=== PATIENT | male | born 1965 | race Caucasian/White ===

== ENCOUNTER 2023-06-27 18:35 | Emergency (ER) | payer OTHER ==
[~2023-06-27] VITALS: Ht 162.6 cm; Wt 93.6 kg
[2023-06-27 18:47] VITALS: BP 134/68; TEMP 97.8; O2SAT 98
[2023-06-27 19:10] LABS: BASO # 0.1 10^3/uL (0.0-0.2); BASO % 0.5 % (0.0-1.0); EOS # 0.1 10^3/uL (0.0-0.5); EOS % 0.3 % (0.0-3.0); HEMATOCRIT 44.9 % (42.0-52.0); LYMPH # 1.5 10^3/uL (1.5-5.0); LYMPH % 9.6 % (24.0-44.0); MEAN CORPUSCULAR HEMOGLOBIN 26.1 pg (27.0-33.0); MEAN CORPUSCULAR HGB CONC 31.2 g/dl (32.0-36.5); MEAN CORPUSCULAR VOLUME 83.6 fl (80.0-96.0); MONO % 6.3 % (2.0-8.0); NEUTROPHILS # 13.3 10^3/uL (1.5-8.5); NEUTROPHILS % 82.5 % (36.0-66.0); PLATELET COUNT, AUTOMATED 457 10^3/uL (150-450); RED BLOOD COUNT 5.37 10^6/uL (4.30-6.10); WHITE BLOOD COUNT 16.1 10^3/uL (4.0-10.0)
[2023-06-27] MEDS ORDERED: KETOROLAC 30 MG/ML 1ML VIAL IV ONE (19:45)
[2023-06-27 19:46] LABS: BLOOD UREA NITROGEN 31 MG/DL (9-23); CALCIUM LEVEL 9.6 MG/DL (8.5-10.1); CARBON DIOXIDE LEVEL 20 MMOL/L (20-31); CHLORIDE LEVEL 101 MMOL/L (98-107); CREATININE FOR GFR 1.14 MG/DL (0.70-1.30); GLOMERULAR FILTRATION RATE > 60.0 (>56); GLUCOSE, FASTING 224 MG/DL (60-100); POTASSIUM SERUM 4.5 MMOL/L (3.5-5.1); SODIUM LEVEL 136 MMOL/L (136-145)
[2023-06-27 19:47] LABS: CPK CREATINE PHOSPHOKINASE 37 U/L (46-171)
[2023-06-27] MEDS ORDERED: DOXYCYCLINE HYCLATE 200 MG in D5W MINI-BAG PLUS 100 ML IV ONE (21:00)
[2023-06-27 21:04] LABS: CK-MB VALUE MASS 1.3 NG/ML (<3.6)
[2023-06-27 21:05] LABS: MB/CK RELATIVE INDEX 3.51 (< OR =4)
[2023-06-27] MEDS ORDERED: D5W IV ONE (21:05)
[2023-06-27] MEDS ORDERED: DOXYCYCLINE HYCLATE IV ONE (21:05)
[2023-06-27] MEDS ORDERED: IBUP-1022 PO (21:15)
[2023-06-27] MEDS ORDERED: DOXY-443 PO (21:15)
== END 2023-06-27 22:30 | disposition home or self-care (01) ==
LOC: EDBD 18:35 → M ED 18:35
DX: J18.9 Pneumonia, unspecified organism (principal); R07.9 Chest pain, unspecified; I25.2 Old myocardial infarction; I10 Essential (primary) hypertension; Z79.1 Long term (current) use of non-steroidal anti-inflammatories (NSAID); Z79.899 Other long term (current) drug therapy
CPT/HCPCS: 71045; 73030; 80048; 82550; 82553; 85025; 93005; 93041; 94760; 96374; 96375; 99284; J1885

== ENCOUNTER 2025-02-20 09:35 | Emergency (ER) | payer OTHER ==
[~2025-02-20] VITALS: Ht 162.6 cm; Wt 108.0 kg
[~2025-02-20 09:35] MED LIST: DOXY-441 PO; IBUP-1022 PO
[2025-02-20 10:15] LABS: BASO # 0.1 10^3/uL (0.0-0.2); BASO % 0.9 % (0.0-1.0); EOS # 0.3 10^3/uL (0.0-0.5); EOS % 2.7 % (0.0-3.0); HEMATOCRIT 45.6 % (42.0-52.0); HEMOGLOBIN 14.7 g/dl (13.5-17.5); LYMPH # 2.5 10^3/uL (1.5-5.0); LYMPH % 26.7 % (24.0-44.0); MEAN CORPUSCULAR HEMOGLOBIN 27.1 pg (27.0-33.0); MEAN CORPUSCULAR HGB CONC 32.2 g/dl (32.0-36.5); MONO # 0.7 10^3/uL (0.0-0.8); MONO % 7.6 % (2.0-8.0); NEUTROPHILS # 5.6 10^3/uL (1.5-8.5); NEUTROPHILS % 61.6 % (36.0-66.0); PLATELET COUNT, AUTOMATED 402 10^3/uL (150-450); RED BLOOD COUNT 5.43 10^6/uL (4.30-6.10); WHITE BLOOD COUNT 9.2 10^3/uL (4.0-10.0)
[2025-02-20 10:39] LABS: BLOOD UREA NITROGEN 19 MG/DL (9-23); CALCIUM LEVEL 9.1 MG/DL (8.5-10.1); CARBON DIOXIDE LEVEL 24 MMOL/L (20-31); CHLORIDE LEVEL 105 MMOL/L (98-107); CREATININE FOR GFR 0.65 MG/DL (0.70-1.30); GLOMERULAR FILTRATION RATE > 60.0 (>56); GLUCOSE, FASTING 265 MG/DL (60-100); POTASSIUM SERUM 4.5 MMOL/L (3.5-5.1); SODIUM LEVEL 135 MMOL/L (136-145)
[2025-02-20 10:40] LABS: CK-MB VALUE MASS < 1.0 NG/ML (<3.6)
[2025-02-20 10:41] LABS: CPK CREATINE PHOSPHOKINASE 17 U/L (46-171); MB/CK RELATIVE INDEX 5.88 (< OR =4)
[2025-02-20] MEDS ORDERED: ISOVUE-370 76% 100ML VIAL As Ordered ONE (11:05)
[2025-02-20 11:24] LABS: ALBUMIN 2.8 G/DL (3.2-5.2); ALKALINE PHOSPHATASE 91 U/L (40-129); ALT/SGPT 10 U/L (7.0-40); AST/SGOT 8 U/L (<34); BILIRUBIN,DIRECT 0.2 MG/DL (<0.4); BILIRUBIN,TOTAL 0.4 MG/DL (0.3-1.2); TOTAL PROTEIN 6.7 G/DL (5.7-8.2)
[2025-02-20 12:08] LABS: CK-MB VALUE MASS < 1.0 NG/ML (<3.6); CPK CREATINE PHOSPHOKINASE 47 U/L (46-171); MB/CK RELATIVE INDEX 2.12 (< OR =4)
[2025-02-20] MEDS: KETOROLAC 30 MG/ML 1ML VIAL IV ONE (13:37)
[2025-02-20] MEDS: GABAPENTIN 100 MG CAP PO ONE (13:37)
[2025-02-20 14:15] VITALS: BP 155/69; TEMP 96.9; O2SAT 95
[2025-02-20] MEDS ORDERED: IBUP-1114 PO (14:15)
[2025-02-20] MEDS ORDERED: NEUR100C PO (14:15)
== END 2025-02-20 14:39 | disposition home or self-care (01) ==
LOC: EDBD 09:35 → M ED 09:35
DX: R07.89 Other chest pain (principal); R00.0 Tachycardia, unspecified; I44.4 Left anterior fascicular block; I45.10 Unspecified right bundle-branch block; I25.2 Old myocardial infarction; I10 Essential (primary) hypertension; E11.9 Type 2 diabetes mellitus without complications; Z79.1 Long term (current) use of non-steroidal anti-inflammatories (NSAID); Z79.2 Long term (current) use of antibiotics; Z79.899 Other long term (current) drug therapy
CPT/HCPCS: 71045; 71275; 74177; 80048; 80076; 82550; 82553; 84484; 85025; 93005; 93041; 94760; 96374; 99285; J1885; Q9967

== ENCOUNTER → 2025-03-03 | Outpatient (CLI) | payer OTHER ==
[~2025-03-03] MED LIST changes: +IBUP-1114 PO; +NEUR100C PO
[2025-03-03 14:17] LABS: HEMATOCRIT 48.4 % (42.0-52.0); HEMOGLOBIN 15.4 g/dl (13.5-17.5); MEAN CORPUSCULAR HEMOGLOBIN 26.8 pg (27.0-33.0); MEAN CORPUSCULAR HGB CONC 31.8 g/dl (32.0-36.5); MEAN CORPUSCULAR VOLUME 84.3 fl (80.0-96.0); PLATELET COUNT, AUTOMATED 375 10^3/uL (150-450); RED BLOOD COUNT 5.74 10^6/uL (4.30-6.10); WHITE BLOOD COUNT 10.1 10^3/uL (4.0-10.0)
[2025-03-03 14:31] LABS: HEMOGLOBIN A1c 8.8 % (4.0-6.0)
[2025-03-03 14:42] LABS: APPEARANCE, URINE CLEAR (CLEAR); BACTERIA, URINE AUTO NEGATIVE (NEGATIVE); BILIRUBIN, URINE AUTO NEGATIVE (NEGATIVE); BLOOD, URINE BLOOD NEGATIVE (NEGATIVE); COLOR, URINE COLORLESS (YELLOW); GLUCOSE, URINE (UA) AUTO NEGATIVE (NEGATIVE); KETONE, URINE AUTO NEGATIVE (NEGATIVE); LEUKOCYTE ESTERASE, URINE AUTO NEGATIVE (NEGATIVE); NITRITE, URINE AUTO NEGATIVE (NEGATIVE); PROTEIN, URINE AUTO NEGATIVE (NEGATIVE); RBC, URINE AUTO 0 /HPF (0-3); SQUAMOUS EPITHELIAL CELL UR AU 0 /HPF (0-6); UROBILINOGEN, URINE AUTO 0.2 mg/dL (0.0-2.0); WBC, URINE AUTO 0 /HPF (0-3)
[2025-03-03 14:54] LABS: ALBUMIN 2.9 G/DL (3.2-5.2); ALKALINE PHOSPHATASE 88 U/L (40-129); ALT/SGPT 11 U/L (7.0-40); AST/SGOT < 8 U/L (<34); BILIRUBIN,TOTAL 0.7 MG/DL (0.3-1.2); BLOOD UREA NITROGEN 20 MG/DL (9-23); CALCIUM LEVEL 9.4 MG/DL (8.5-10.1); CARBON DIOXIDE LEVEL 23 MMOL/L (20-31); CHLORIDE LEVEL 107 MMOL/L (98-107); CHOLESTEROL LEVEL 149 MG/DL (<200); CHOLESTEROL RISK RATIO 4.96 (<5); CREATININE FOR GFR 0.72 MG/DL (0.70-1.30); FREE T4 1.36 NG/DL (0.89-1.76); GLOMERULAR FILTRATION RATE > 90.0 (>56); GLUCOSE, FASTING 168 MG/DL (60-100); LDL CHOLESTEROL 97.4 MG/DL (<100); POTASSIUM SERUM 4.4 MMOL/L (3.5-5.1); SODIUM LEVEL 138 MMOL/L (136-145); THYROID STIMULATING HORMONE 3.178 uIU/ML (0.55-4.78); TOTAL 25(OH) VITAMIN D 22.6 NG/ML (20.0-100.0); TOTAL PROTEIN 6.8 G/DL (5.7-8.2); TRIGLYCERIDES LEVEL 108 MG/DL (<150)
[2025-03-03 16:08] LABS: CREATININE, URINE 5.8 MG/DL
[2025-03-03 16:09] LABS: MALB URINE SIEMENS < 3.0 MG/L
[2025-03-05 14:49] LABS: PSA FREE 0.3 ng/mL; PSA TOTAL 2.2 ng/mL (< OR = 4.0)
== END ==
LOC: M LAB 12:19
PROVIDERS: ATTEND Physician Assistant
DX: E11.65 Type 2 diabetes mellitus with hyperglycemia (principal); E78.5 Hyperlipidemia, unspecified; R39.11 Hesitancy of micturition; E55.9 Vitamin D deficiency, unspecified

== ENCOUNTER → 2025-06-11 | Outpatient (CLI) | payer OTHER ==
[~2025-06-11] MED LIST changes: +ASPI-523 PO; +ATEN25TA PO; +ATOR40TA75 PO; +GABA-1171 PO; +JARD1TAB PO; +LOSA50TA28 PO; +MELO7.5T35 PO; +METF10004 PO; +NYST1POW3 TOP; +OXYC7.5T3 PO; +SERT50TA29 PO
== END ==
LOC: M CARPUL 13:12
PROVIDERS: ATTEND Registered Nurse
DX: I50.30 Unspecified diastolic (congestive) heart failure (principal)

== ENCOUNTER 2025-06-30 09:56 | Emergency (ER) | payer MEDICAID, OTHER ==
[~2025-06-30] VITALS: Ht 162.6 cm; Wt 109.1 kg
[2025-06-30 10:06] VITALS: TEMP 98.6
[2025-06-30] MEDS ORDERED: CLOT1CRE56 TOP (11:16)
[2025-06-30] MEDS ORDERED: SERT-141 PO (11:16)
[2025-06-30] MEDS ORDERED: ATOR80TA59 PO (11:16)
[2025-06-30] MEDS ORDERED: IBUP-1114 PO (11:16)
[2025-06-30] MEDS ORDERED: HOME MED LIST COMPLETE! XX SCH (11:20)
[2025-06-30 11:29] LABS: C REACTIVE PROTEIN QUANTITATIV 1.29 MG/DL (<1.0)
[2025-06-30 11:31] LABS: BASO # 0.1 10^3/uL (0.0-0.2); BASO % 0.5 % (0.0-1.0); EOS # 0.1 10^3/uL (0.0-0.5); EOS % 0.5 % (0.0-3.0); LYMPH # 1.7 10^3/uL (1.5-5.0); LYMPH % 10.2 % (24.0-44.0); MONO # 1.3 10^3/uL (0.0-0.8); MONO % 7.9 % (2.0-8.0); NEUTROPHILS # 13.4 10^3/uL (1.5-8.5); NEUTROPHILS % 80.5 % (36.0-66.0); PLATELET COUNT, AUTOMATED 400 10^3/uL (150-450)
[2025-06-30 11:44] LABS: ERYTHROCYTE SEDIMENTATION RATE 48 mm/hr (0-20)
[2025-06-30] MEDS ORDERED: NAPR-837 PO (13:34)
[2025-06-30 13:48] VITALS: BP 141/78; O2SAT 97
== END 2025-06-30 14:10 | disposition home or self-care (01) ==
LOC: EDBD 09:56 → M ED 09:56
DX: M70.41 Prepatellar bursitis, right knee (principal); M17.11 Unilateral primary osteoarthritis, right knee; E11.9 Type 2 diabetes mellitus without complications; I10 Essential (primary) hypertension; E78.5 Hyperlipidemia, unspecified; F32.A Depression, unspecified; Z87.891 Personal history of nicotine dependence; Z86.79 Personal history of other diseases of the circulatory system; Z79.82 Long term (current) use of aspirin; Z79.02 Long term (current) use of antithrombotics/antiplatelets; Z79.899 Other long term (current) drug therapy

== ENCOUNTER → 2025-07-02 | Outpatient (CLI) | payer MEDICAID, OTHER ==
[~2025-07-02] MED LIST changes: +ATOR80TA59 PO; +CLOT1CRE56 TOP; +NAPR-837 PO; +SERT-141 PO
[2025-07-02 13:39] LABS: CHOLESTEROL LEVEL 206.0 MG/DL (<200); CHOLESTEROL RISK RATIO 5.53 (<5); LDL CHOLESTEROL 153.6 MG/DL (<100); NON-HDL-C 168.8 MG/DL; TRIGLYCERIDES LEVEL 76.0 MG/DL (<150)
== END ==
LOC: M LAB 09:46
PROVIDERS: ATTEND Registered Nurse
DX: I25.10 Atherosclerotic heart disease of native coronary artery without angina pectoris (principal)

== ENCOUNTER 2025-07-05 14:51 | Emergency (ER) | payer OTHER ==
[~2025-07-05] VITALS: Ht 162.6 cm; Wt 109.0 kg
[2025-07-05 15:16] VITALS: TEMP 99
[2025-07-05 15:33] LABS: BASO # 0.1 10^3/uL (0.0-0.2); BASO % 0.7 % (0.0-1.0); EOS # 0.3 10^3/uL (0.0-0.5); EOS % 2.0 % (0.0-3.0); LYMPH # 2.3 10^3/uL (1.5-5.0); LYMPH % 17.1 % (24.0-44.0); MONO # 0.9 10^3/uL (0.0-0.8); MONO % 6.9 % (2.0-8.0); NEUTROPHILS # 10.0 10^3/uL (1.5-8.5); NEUTROPHILS % 72.8 % (36.0-66.0); PLATELET COUNT, AUTOMATED 386 10^3/uL (150-450)
[2025-07-05 15:48] LABS: INR 1.0
[2025-07-05 16:09] LABS: CK-MB VALUE MASS 1.1 NG/ML (<3.6)
[2025-07-05 16:14] LABS: ALT/SGPT 11 U/L (7.0-40); AST/SGOT 21 U/L (<34); CALCIUM LEVEL 9.1 MG/DL (8.5-10.1); CARBON DIOXIDE LEVEL 24 MMOL/L (20-31); CHLORIDE LEVEL 109 MMOL/L (98-107); CREATININE FOR GFR 0.62 MG/DL (0.70-1.30); GLOMERULAR FILTRATION RATE > 90.0 (>56); POTASSIUM SERUM 4.4 MMOL/L (3.5-5.1); SODIUM LEVEL 143 MMOL/L (136-145)
[2025-07-05 16:16] LABS: CPK CREATINE PHOSPHOKINASE 42 U/L (46-171); FREE T4 1.52 NG/DL (0.89-1.76); MB/CK RELATIVE INDEX 2.61 (< OR =4)
[2025-07-05 17:13] LABS: CK-MB VALUE MASS 1.1 NG/ML (<3.6)
[2025-07-05 17:15] VITALS: BP 156/74
[2025-07-05 17:28] LABS: CPK CREATINE PHOSPHOKINASE 42.0 U/L (46-171); MB/CK RELATIVE INDEX 2.61 (< OR =4)
[2025-07-05] MEDS ORDERED: ISOVUE-370 76% 100 ML VIAL As Ordered ONE (18:36)
[2025-07-05 18:45] VITALS: O2SAT 96
== END 2025-07-05 19:58 | disposition home or self-care (01) ==
LOC: M ED 14:51 → EDBD 14:51 → M ED 19:58
DX: R07.9 Chest pain, unspecified (principal); J98.11 Atelectasis; J91.8 Pleural effusion in other conditions classified elsewhere; K86.89 Other specified diseases of pancreas; I45.10 Unspecified right bundle-branch block; I10 Essential (primary) hypertension; E78.5 Hyperlipidemia, unspecified; E11.9 Type 2 diabetes mellitus without complications; Z86.79 Personal history of other diseases of the circulatory system; Z87.891 Personal history of nicotine dependence; Z79.82 Long term (current) use of aspirin; Z79.899 Other long term (current) drug therapy; Z79.02 Long term (current) use of antithrombotics/antiplatelets; Z79.4 Long term (current) use of insulin; Z79.1 Long term (current) use of non-steroidal anti-inflammatories (NSAID)
CPT/HCPCS: 36415; 71045; 71275; 80047; 80048; 80076; 82550; 82553; 83690; 84439; 84443; 84484; 85025; 85610; 85730; 93005; 93041; 94760; 99285; Q9967

== ENCOUNTER 2025-10-11 14:10 | Emergency (ER) | payer MEDICAID, OTHER ==
[~2025-10-11 14:10] MED LIST changes: -IBUP-1022 PO; +IBUP600T42 PO
[2025-10-11] MEDS ORDERED: INDO50CA91 PO (16:58)
[2025-10-11] MEDS: INDOMETHACIN 25 MG CAP PO ONE (17:22)
[2025-10-11 17:29] VITALS: BP 164/78; TEMP 98; O2SAT 99
== END 2025-10-11 17:31 | disposition home or self-care (01) ==
LOC: M ED 14:10
DX: M17.11 Unilateral primary osteoarthritis, right knee (principal); M25.761 Osteophyte, right knee; I10 Essential (primary) hypertension; E78.5 Hyperlipidemia, unspecified; E11.9 Type 2 diabetes mellitus without complications; F32.A Depression, unspecified; Z86.79 Personal history of other diseases of the circulatory system; Z79.82 Long term (current) use of aspirin; Z79.02 Long term (current) use of antithrombotics/antiplatelets; Z79.899 Other long term (current) drug therapy; Z79.4 Long term (current) use of insulin

== ENCOUNTER 2025-11-12 10:48 | Inpatient (IN) | payer MEDICAID, OTHER ==
[~2025-11-12] VITALS: Ht 162.6 cm; Wt 111.2 kg
[~2025-11-12 10:48] MED LIST changes: +INDO50CA91 PO
[2025-11-12 11:24] LABS: PLATELET COUNT, AUTOMATED 407 10^3/uL (150-450)
[2025-11-12 11:46] LABS: CALCIUM LEVEL 8.4 MG/DL (8.5-10.1); CARBON DIOXIDE LEVEL 25 MMOL/L (20-31); CHLORIDE LEVEL 101 MMOL/L (98-107); CREATININE FOR GFR 0.62 MG/DL (0.70-1.30); GLOMERULAR FILTRATION RATE > 90.0 (>56); POTASSIUM SERUM 5.4 MMOL/L (3.5-5.1); SODIUM LEVEL 136 MMOL/L (136-145)
[2025-11-12] MEDS ORDERED: ISOVUE-370 76% 100 ML VIAL As Ordered ONE (13:28)
[2025-11-12 14:37] LABS: CK-MB VALUE MASS 1.1 NG/ML (<3.6); CPK CREATINE PHOSPHOKINASE 34 U/L (46-171); MB/CK RELATIVE INDEX 3.23 (< OR =4)
[2025-11-12] MEDS ORDERED: DICL100G10 TOP (16:58)
[2025-11-12] MEDS ORDERED: HOME MED LIST COMPLETE! XX SCH (17:00)
[2025-11-12 17:26] LABS: CK-MB VALUE MASS 1.0 NG/ML (<3.6); CPK CREATINE PHOSPHOKINASE 17.0 U/L (46-171); MB/CK RELATIVE INDEX 5.88 (< OR =4)
[2025-11-12 21:13] LABS: ETHYL ALCOHOL (ETHANOL) < 0.003 % (0.000-0.010)
[2025-11-12 21:15] LABS: SALICYLATE LEVEL < 3.0 MG/DL (<30)
[2025-11-12 21:17] LABS: ALT/SGPT 10 U/L (7.0-40); AST/SGOT 11 U/L (<34); POTASSIUM SERUM 4.0 MMOL/L (3.5-5.1)
[2025-11-12 21:24] LABS: AMPHETAMINES LEVEL URINE NEGATIVE (NEGATIVE); BARBITURATES URINE NEGATIVE (NEGATIVE); BENZODIAZEPINES URINE NEGATIVE (NEGATIVE); CANNABINOIDS URINE NEGATIVE (NEGATIVE); COCAINE METABOLITE URINE NEGATIVE (NEGATIVE); METHADONE URINE NEGATIVE (NEGATIVE); OPIATES URINE NEGATIVE (NEGATIVE); PHENCYCLIDINE URINE NEGATIVE (NEGATIVE)
[2025-11-12] MEDS: CEPHALEXIN 500 MG CAP PO SCH (21:33)
[2025-11-12] MEDS ORDERED: MOM 30 ML SUSPENSION UDC PO PRN (22:05)
[2025-11-12] MEDS ORDERED: ACETAMINOPHEN 325 MG TAB PO PRN (22:05)
[2025-11-12] MEDS ORDERED: MAALOX 30 ML SUSP *UDC PO PRN (22:05)
[2025-11-12 23:34] VITALS: BP 120/60; TEMP 98; O2SAT 97
[2025-11-13 06:11] VITALS: BP 133/65; TEMP 97.2; O2SAT 98
[2025-11-13] MEDS ORDERED: NYSTATIN 100,000 UNITS/GM TOPICAL PWD 15 GM TOP PRN (09:30)
[2025-11-13 10:43] VITALS: BP 143/77
[2025-11-13] MEDS: ATORVASTATIN 20 MG TAB PO SCH (10:44)
[2025-11-13] MEDS: LOSARTAN 50 MG TABLET PO SCH (10:44)
[2025-11-13] MEDS: ASPIRIN 81 MG ENTERIC TABLET PO SCH (10:45)
[2025-11-13] MEDS: SERTRALINE HCL 50 MG TAB PO SCH (10:45)
[2025-11-13] MEDS: MELOXICAM 7.5 MG TAB PO SCH (10:45)
[2025-11-13 14:04] LABS: ESTIMATED AVERAGE GLUCOSE 220.0 MG/DL (60-110)
[2025-11-13 15:20] VITALS: BP 119/61; TEMP 98.5; O2SAT 98
[2025-11-13] MEDS: traZODone 50 MG TAB PO PRN (20:09)
[2025-11-14 06:21] VITALS: BP 112/61; TEMP 98.2; O2SAT 96
[2025-11-14 15:23] VITALS: BP 138/64; TEMP 98.2; O2SAT 99
[2025-11-15 06:21] VITALS: BP 165/77; TEMP 97.3; O2SAT 96
[2025-11-15 16:32] VITALS: BP 148/84; TEMP 97; O2SAT 100
[2025-11-16 06:30] VITALS: BP 142/82; TEMP 98; O2SAT 95
[2025-11-16 08:48] VITALS: BP 148/64; TEMP 98; O2SAT 95
[2025-11-16 14:56] VITALS: BP 119/73; TEMP 97.8; O2SAT 97
[2025-11-16] MEDS: IBUPROFEN 400 MG TAB PO PRN (21:07)
[2025-11-17] MEDS ORDERED: TRAZ-252 PO (00:23)
[2025-11-17] MEDS ORDERED: HYDR-3363 PO (00:23)
[2025-11-17] MEDS ORDERED: SERT50TA29 PO (00:23)
[2025-11-17 06:26] VITALS: BP 150/80; TEMP 97.1; O2SAT 97
[2025-11-17 08:37] VITALS: BP 126/58
== END 2025-11-17 10:35 | disposition home or self-care (01) | DRG 751 ==
LOC: M ED 10:48 → M ED INP 20:19 → M PSY 23:40
PROVIDERS: ADMIT Student in an Organized Health Care Education/Training Program; ATTEND Student in an Organized Health Care Education/Training Program
DX: F33.1 Major depressive disorder, recurrent, moderate (principal); E11.9 Type 2 diabetes mellitus without complications; R45.851 Suicidal ideations; M25.552 Pain in left hip; R10.9 Unspecified abdominal pain; K80.20 Calculus of gallbladder without cholecystitis without obstruction; F41.9 Anxiety disorder, unspecified; I10 Essential (primary) hypertension; E78.5 Hyperlipidemia, unspecified; I25.10 Atherosclerotic heart disease of native coronary artery without angina pectoris; R26.89 Other abnormalities of gait and mobility; Z95.5 Presence of coronary angioplasty implant and graft; Z59.2 Discord with neighbors, lodgers and landlord; Z79.82 Long term (current) use of aspirin; Z79.84 Long term (current) use of oral hypoglycemic drugs; Z79.899 Other long term (current) drug therapy